=== PATIENT | female | born 1985 | race Caucasian/White ===

== ENCOUNTER → 2022-05-17 | Outpatient (REF) | LOC: M EMP 10:00 | PROVIDERS: ATTEND Family Medicine | DX: Z11.52 Encounter for screening for COVID-19 (principal) ==

== ENCOUNTER 2022-09-21 08:41 | Inpatient (IN) | payer OTHER, SELFPAY ==
[2022-09-21] MEDS ORDERED: OLANZapine ORAL DISINTEGRATING TAB 5MG PO ONE (08:50)
[2022-09-21 10:48] LABS: HEMATOCRIT 42.2 % (36.0-47.0); HEMOGLOBIN 13.7 g/dl (12.0-15.5); MEAN CORPUSCULAR HEMOGLOBIN 29.7 pg (27.0-33.0); MEAN CORPUSCULAR HGB CONC 32.5 g/dl (32.0-36.5); MEAN CORPUSCULAR VOLUME 91.3 fl (80.0-96.0); PLATELET COUNT, AUTOMATED 362 10^3/uL (150-450); RED BLOOD COUNT 4.62 10^6/uL (4.00-5.40); WHITE BLOOD COUNT 14.4 10^3/uL (4.0-10.0)
[2022-09-21 11:15] LABS: ETHYL ALCOHOL (ETHANOL) 0.003 % (0.000-0.010)
[2022-09-21 11:17] LABS: ACETAMINOPHEN LEVEL < 2.0 UG/ML (10.0-20.0); ALBUMIN 4.3 G/DL (3.2-5.2); ALKALINE PHOSPHATASE 76 U/L (46-116); ALT/SGPT 29 U/L (7.0-40); AST/SGOT 32 U/L (<34); BILIRUBIN,DIRECT 0.2 MG/DL (<0.4); BILIRUBIN,TOTAL 0.7 MG/DL (0.3-1.2); BLOOD UREA NITROGEN 11 MG/DL (9-23); CALCIUM LEVEL 9.2 MG/DL (8.5-10.1); CARBON DIOXIDE LEVEL 23 MMOL/L (20-31); CHLORIDE LEVEL 103 MMOL/L (98-107); CREATININE FOR GFR 0.75 MG/DL (0.55-1.30); GLOMERULAR FILTRATION RATE > 60.0 (>60); GLUCOSE, FASTING 189 MG/DL (60-100); POTASSIUM SERUM 3.5 MMOL/L (3.5-5.1); SALICYLATE LEVEL < 3.0 MG/DL (<30); SODIUM LEVEL 139 MMOL/L (136-145); TOTAL PROTEIN 7.7 G/DL (5.7-8.2)
[2022-09-21 11:21] LABS: THYROID STIMULATING HORMONE 3.507 uIU/ML (0.55-4.78)
[2022-09-21 11:23] LABS: HCG, SERUM QUALITATIVE NEGATIVE (NEGATIVE)
[2022-09-21 11:40] LABS: AMPHETAMINES LEVEL URINE NEGATIVE (NEGATIVE); BARBITURATES URINE NEGATIVE (NEGATIVE); BENZODIAZEPINES URINE NEGATIVE (NEGATIVE); COCAINE METABOLITE URINE NEGATIVE (NEGATIVE); METHADONE URINE NEGATIVE (NEGATIVE); OPIATES URINE NEGATIVE (NEGATIVE); PHENCYCLIDINE URINE NEGATIVE (NEGATIVE)
[2022-09-21 11:48] LABS: CANNABINOIDS URINE POSITIVE (NEGATIVE)
[2022-09-21] MEDS ORDERED: ESSETAB4 PO (15:17)
[2022-09-21] MEDS ORDERED: PROP10TA56 PO (15:17)
[2022-09-21] MEDS ORDERED: LEXA1TAB2 PO (15:17)
[2022-09-21] MEDS ORDERED: VITA100093 PO (15:17)
[2022-09-21] MEDS ORDERED: ACYC1TAB4 PO (15:17)
[2022-09-21] MEDS ORDERED: COZA50TA PO (15:17)
[2022-09-21] MEDS ORDERED: PROBCAP14 PO (15:17)
[2022-09-21] MEDS ORDERED: OMEG10002 PO (15:17)
[2022-09-21] MEDS ORDERED: HOME MED LIST COMPLETE! XX SCH (15:25)
[2022-09-21 15:41] LABS: RSV AMPLIFICATION NEGATIVE (NEGATIVE)
[2022-09-21 15:49] LABS: HEMOGLOBIN A1c 4.9 % (4.0-6.0)
[2022-09-21] MEDS ORDERED: PROPRANOLOL 10 MG TAB PO PRN (16:20)
[2022-09-21] MEDS ORDERED: NICOTINE 14 MG/24 HR TRANSDERMAL TD ONE (20:05)
[2022-09-21] MEDS: ACYCLOVIR 200 MG CAPSULE PO SCH (20:13)
[2022-09-22] MEDS: ACYCLOVIR 200 MG CAPSULE PO SCH ×2 (08:37→21:26)
[2022-09-22] MEDS ORDERED: LOSARTAN 50MG TABLET PO SCH (09:00)
[2022-09-22] MEDS: OMEGA-3 1000MG CAPSULE PO SCH (09:00)
[2022-09-22] MEDS: VITAMIN D 1,000 INTERNATIONAL UNITS TABLET PO SCH (09:00)
[2022-09-22] MEDS ORDERED: NICOTINE 14 MG/24 HR TRANSDERMAL TD ONE (09:00)
[2022-09-22] MEDS ORDERED: ESCITALOPRAM OXALATE 10 MG TAB (LEXAPRO) PO SCH (09:00)
[2022-09-22] MEDS ORDERED: traZODone 50 MG TAB PO PRN (12:05)
[2022-09-22] MEDS ORDERED: LORazepam 1 MG TAB PO PRN (12:05)
[2022-09-22] MEDS ORDERED: MOM 30ML SUSPENSION UDC PO PRN (12:05)
[2022-09-22] MEDS ORDERED: MAALOX 30 ML SUSP *UDC PO PRN (12:05)
[2022-09-22 17:57] VITALS: BP 154/84
[2022-09-22] MEDS: ACETAMINOPHEN TAB 650MG DOSE (2X325MG) PO PRN (21:26)
[2022-09-23] MEDS: diphenhydrAMINE 25MG CAP PO PRN (03:07)
[2022-09-23] MEDS ORDERED: INFLUENZA QUADRIVALENT PF VACCINE 0.5ML SYRINGE IM.IMMUN ONE (09:00)
[2022-09-23] MEDS: NICOTINE 21MG/24HR 1 EA TRANSDERMAL TD SCH (09:23)
[2022-09-23] MEDS: OMEGA-3 1000MG CAPSULE PO SCH (09:23)
[2022-09-23] MEDS: ACYCLOVIR 200 MG CAPSULE PO SCH ×2 (09:23→20:31)
[2022-09-23] MEDS: VITAMIN D 1,000 INTERNATIONAL UNITS TABLET PO SCH (09:23)
[2022-09-23] MEDS: LOSARTAN 50MG TABLET PO SCH (09:28)
[2022-09-23 09:37] LABS: HEMOGLOBIN 13.2 g/dl (12.0-15.5); MEAN CORPUSCULAR HEMOGLOBIN 29.3 pg (27.0-33.0); MEAN CORPUSCULAR HGB CONC 32.2 g/dl (32.0-36.5); MEAN CORPUSCULAR VOLUME 91.1 fl (80.0-96.0); PLATELET COUNT, AUTOMATED 348 10^3/uL (150-450); WHITE BLOOD COUNT 11.4 10^3/uL (4.0-10.0)
[2022-09-23] MEDS: ARIPiprazole 10 MG TAB PO SCH (10:54)
[2022-09-23 12:02] VITALS: BP 138/82
[2022-09-23] MEDS: ACETAMINOPHEN TAB 650MG DOSE (2X325MG) PO PRN ×2 (12:29→20:32)
[2022-09-23 17:21] VITALS: BP 132/68
[2022-09-24 06:25] VITALS: BP 155/87
[2022-09-24 06:55] LABS: CHOLESTEROL RISK RATIO 3.5 (<5); HDL CHOLESTEROL 43.4 MG/DL (>40)
[2022-09-24] MEDS: NICOTINE 21MG/24HR 1 EA TRANSDERMAL TD SCH (08:41)
[2022-09-24] MEDS: ACETAMINOPHEN TAB 650MG DOSE (2X325MG) PO PRN (08:42)
[2022-09-24] MEDS: OMEGA-3 1000MG CAPSULE PO SCH (08:43)
[2022-09-24] MEDS: LOSARTAN 50MG TABLET PO SCH (08:47)
[2022-09-24] MEDS: VITAMIN D 1,000 INTERNATIONAL UNITS TABLET PO SCH (08:47)
[2022-09-24] MEDS: ARIPiprazole 10 MG TAB PO SCH (08:47)
[2022-09-24] MEDS: ACYCLOVIR 200 MG CAPSULE PO SCH ×2 (08:48→20:27)
[2022-09-24] MEDS: IBUPROFEN 400MG TAB PO PRN (15:23)
[2022-09-24] MEDS: PROPRANOLOL 10 MG TAB PO PRN (16:50)
[2022-09-24 17:23] VITALS: BP 146/96
[2022-09-24] MEDS: diphenhydrAMINE 25MG CAP PO PRN (20:27)
[2022-09-25 06:49] VITALS: BP 139/92
[2022-09-25] MEDS: NICOTINE 21MG/24HR 1 EA TRANSDERMAL TD SCH (08:05)
[2022-09-25] MEDS: ACYCLOVIR 200 MG CAPSULE PO SCH ×2 (08:05→20:08)
[2022-09-25] MEDS: LOSARTAN 50MG TABLET PO SCH (08:05)
[2022-09-25] MEDS: VITAMIN D 1,000 INTERNATIONAL UNITS TABLET PO SCH (08:05)
[2022-09-25] MEDS: OMEGA-3 1000MG CAPSULE PO SCH (08:05)
[2022-09-25] MEDS: ARIPiprazole 10 MG TAB PO SCH (08:06)
[2022-09-25] MEDS: ACETAMINOPHEN TAB 650MG DOSE (2X325MG) PO PRN ×2 (09:23→20:07)
[2022-09-25] MEDS: diphenhydrAMINE 25MG CAP PO PRN (09:23)
[2022-09-25] MEDS: PROPRANOLOL 10 MG TAB PO PRN (17:17)
[2022-09-25 20:31] VITALS: BP 138/81
[2022-09-26] MEDS: IBUPROFEN 400MG TAB PO PRN (01:19)
[2022-09-26] MEDS: PROPRANOLOL 10 MG TAB PO PRN (01:20)
[2022-09-26 06:07] VITALS: BP 138/65
[2022-09-26 08:29] VITALS: BP 118/72
[2022-09-26] MEDS: VITAMIN D 1,000 INTERNATIONAL UNITS TABLET PO SCH (08:29)
[2022-09-26] MEDS: OMEGA-3 1000MG CAPSULE PO SCH (08:29)
[2022-09-26] MEDS: LOSARTAN 50MG TABLET PO SCH (08:29)
[2022-09-26] MEDS: ACYCLOVIR 200 MG CAPSULE PO SCH (08:30)
[2022-09-26] MEDS: diphenhydrAMINE 25MG CAP PO PRN (08:30)
[2022-09-26] MEDS: NICOTINE 21MG/24HR 1 EA TRANSDERMAL TD SCH (08:31)
[2022-09-26] MEDS ORDERED: ARIPiprazole 15 MG TAB (AbiLIFY) PO SCH ×2 (09:00→21:00)
[2022-09-26] MEDS ORDERED: ABIL1TAB12 PO (09:07)
[2022-09-26] MEDS ORDERED: NICO21PAT TD (09:07)
[2022-09-26] MEDS ORDERED: TRAZ-252 PO (09:07)
== END 2022-09-26 13:09 | disposition home or self-care (01) | DRG 885 ==
LOC: M ED 08:41 → M ED INP 09-22 12:01 → M PSY 09-22 16:43 → UNDODISIN 09-26 10:52
PROVIDERS: ADMIT Student in an Organized Health Care Education/Training Program; ATTEND Student in an Organized Health Care Education/Training Program
DX: F31.10 Bipolar disorder, current episode manic without psychotic features, unspecified (principal); R45.851 Suicidal ideations; L51.1 Stevens-Johnson syndrome; F41.9 Anxiety disorder, unspecified; E06.3 Autoimmune thyroiditis; F17.290 Nicotine dependence, other tobacco product, uncomplicated; D72.829 Elevated white blood cell count, unspecified; I10 Essential (primary) hypertension; G43.909 Migraine, unspecified, not intractable, without status migrainosus; Z90.49 Acquired absence of other specified parts of digestive tract; Z79.899 Other long term (current) drug therapy; Z88.8 Allergy status to other drugs, medicaments and biological substances; Z20.822 Contact with and (suspected) exposure to COVID-19